=== PATIENT | female | born 1955 | race Two or more races ===

== ENCOUNTER 2023-12-03 15:39 | Inpatient (IN) | payer MEDICAID, OTHER ==
[~2023-12-03] VITALS: Ht 154.9 cm; Wt 75.8 kg
[2023-12-03 20:50] VITALS: PULSE 83; RESP 17; O2SAT 99
[2023-12-03 20:50] LABS: Basophils # (auto) 0 10 ^3/uL (0-0.2); Basophils % (auto) 0.5 % (0.0-2.0); Eosinophils # (auto) 0.3 10 ^3/uL (0-0.8); Lymphocytes # (auto) 0.9 10 ^3/uL (0.4-5.4)
[2023-12-03 20:51] LABS: Eosinophils % (auto) 3.1 % (0.0-7.0); Hematocrit 28.1 % (36.0-46.0); Hemoglobin 9.4 g/dL (12.2-16.2); Lymphocytes % (auto) 9.2 % (10.0-50.0); Mean Corpuscular Hemoglobin 27.3 pg (28.0-32.0); Mean Corpuscular Hgb Conc. 33.4 g/dL (32.0-36.0); Monocytes # (auto) 0.8 10 ^3/uL (0-1.3); Neutrophils # (auto) 7.2 10 ^3/uL (1.6-8.6); Neutrophils % (auto) 78.2 % (37.0-80.0); Platelet Count (auto) 522 10^3/uL (140-450); Red Blood Cells 3.43 10^6/uL (4.0-5.20); Red Cell Distribution Width 16.7 % (11.8-14.3); White Blood Cell 9.3 10^3/uL (4.4-10.8)
[2023-12-03 21:15] LABS: Albumin 3.2 g/dL (3.2-4.8); Alkaline Phosphatase 129 U/L (46-116); Anion Gap 8 (5-15); Aspartate Aminotransferase 26 U/L (13-40); BUN/Creatinine Ratio 27.1 (10.0-20.0); Blood Urea Nitrogen 36 mg/dL (9-23); Calcium 9.2 mg/dL (8.7-10.4); Carbon Dioxide 22 mmol/L (20-30); Chloride 101 mmol/L (98-107); Glucose 94 mg/dL (74-106); Potassium 3.7 mmol/L (3.5-5.1); Sodium 131 mmol/L (136-145)
[2023-12-03 21:16] LABS: Bilirubin, Total 0.3 mg/dL (0.2-1.0); Total Protein 7.1 g/dL (5.7-8.2)
[2023-12-03 21:18] LABS: Alanine Aminotransferase < 9 U/L (7-40)
[2023-12-03] MEDS ORDERED: VANCOMYCIN PER PHARMACY 0 MG IV SCH (21:30)
[2023-12-03] MEDS: NOREPINEPHRINE 8 MG/250ML KIT 250 ML IV SCH (21:30)
[2023-12-03] MEDS: SODIUM CHLORIDE 0.9% 1,000 ML IV ONE (21:49)
[2023-12-03 22:19] LABS: Triglycerides 167 mg/dL (< 150)
[2023-12-03 22:20] LABS: LDL Cholesterol 62 mg/dL (< 100)
[2023-12-03 22:21] LABS: Cholesterol 98 mg/dL (< 200); HDL Cholesterol 14 mg/dL (40-59); INR 1.18 (0.9-1.15); Partial Thromboplastin Time 34.5 SEC (24.5-34.5); Prothrombin Time 12.4 sec (9.3-11.8)
[2023-12-03 22:22] LABS: Urine Amorphous Crystal FEW /hpf (None Seen); Urine Bacteria MANY /hpf (None Seen); Urine Blood Negative /uL (Negative); Urine Clarity Ex.Turbid (Clear); Urine Color Light-Orange (Yellow); Urine Mucus FEW (None Seen); Urine Protein, UAD 4+ (Negative); Urine Specific Gravity 1.018 (1.001-1.035); Urine Urobilinogen Normal (Negative); Urine WBC 41 /hpf (0 - 5); Urine pH 8.5 (5.0-9.0)
[2023-12-03] MEDS: ATORVASTATIN 20 MG TAB PO SCH (22:23)
[2023-12-03] MEDS: ASPirin 81 mg TAB PO ONE (22:23)
[2023-12-03] MEDS: CEFEPIME 1GM/ 50ML 50 ML IV ONE (22:23)
[2023-12-03] MEDS: PANTOPRAZOLE 40 MG/10 ML VIAL INJ IV ONE (22:24)
[2023-12-03 22:31] LABS: Amphetamine Screen, Urine Neg (NEGATIVE); Barbiturate Scree,Urine Neg (NEGATIVE); Benzodiazephine Screen, Urine Neg (NEGATIVE); Cannabinoid Screen, Urine Neg (NEGATIVE); Cocaine Screen, Urine Neg (NEGATIVE); Opiate Scree,Urine Neg (NEGATIVE); Phencyclidine Screen, Urine Neg (NEGATIVE)
[2023-12-03] MEDS: VANCOMYCIN 1.5GM/300ML 300 ML IV ONE (22:53)
[2023-12-04] MEDS: SODIUM CHLORIDE 0.9% 1,000 ML IV ONE (01:15)
[2023-12-04] MEDS: SODIUM CHLORIDE 0.9% 1,000 ML IV SCH (02:15)
[2023-12-04] MEDS: IOHEXOL 300 MG/ML 100ML BOTTLE IJ ONE (03:07)
[2023-12-04] MEDS: NOREPINEPHRINE 8 MG/250ML KIT 250 ML IV SCH (05:23)
[2023-12-04 06:07] LABS: Basophils # (auto) 0 10 ^3/uL (0-0.2); Basophils % (auto) 0.5 % (0.0-2.0); Eosinophils # (auto) 0.3 10 ^3/uL (0-0.8); Eosinophils % (auto) 3.1 % (0.0-7.0); Hematocrit 27.4 % (36.0-46.0); Lymphocytes # (auto) 0.6 10 ^3/uL (0.4-5.4); Lymphocytes % (auto) 6.7 % (10.0-50.0); Mean Corpuscular Hemoglobin 27.2 pg (28.0-32.0); Mean Corpuscular Hgb Conc. 32.7 g/dL (32.0-36.0); Mean Corpuscular Volume 83.2 fL (80.0-100.0); Monocytes # (auto) 0.7 10 ^3/uL (0-1.3); Monocytes % (auto) 8.4 % (0.0-12.0); Neutrophils % (auto) 81.3 % (37.0-80.0); Nucleated Red Blood Cells % 0.1 %; Platelet Count (auto) 441 10^3/uL (140-450); White Blood Cell 8.6 10^3/uL (4.4-10.8)
[2023-12-04 06:34] LABS: Albumin 2.8 g/dL (3.2-4.8); Alkaline Phosphatase 109 U/L (46-116); Anion Gap 8 (5-15); Aspartate Aminotransferase 20 U/L (13-40); BUN/Creatinine Ratio 22.8 (10.0-20.0); Blood Urea Nitrogen 33 mg/dL (9-23); Calcium 8.5 mg/dL (8.7-10.4); Carbon Dioxide 18 mmol/L (20-30); Chloride 106 mmol/L (98-107); Glucose 90 mg/dL (74-106); Potassium 3.8 mmol/L (3.5-5.1); Sodium 132 mmol/L (136-145)
[2023-12-04 06:35] LABS: Bilirubin, Total 0.3 mg/dL (0.2-1.0); Total Protein 6.1 g/dL (5.7-8.2)
[2023-12-04 06:36] LABS: Alanine Aminotransferase < 9 U/L (7-40)
[2023-12-04 08:00] VITALS: PULSE 87; RESP 17; O2SAT 96
[2023-12-04] MEDS ORDERED: ASPirin 81 mg TAB PO SCH (10:00)
[2023-12-04] MEDS: CEFEPIME 1GM/ 50ML 50 ML IV SCH (13:48)
[2023-12-04] MEDS: PANTOPRAZOLE 40 MG/10 ML VIAL INJ IV SCH (13:48)
[2023-12-04 19:30] VITALS: PULSE 82; RESP 16; O2SAT 95
[2023-12-05] VITALS (24 sets, daily range): BP systolic 83–131; BP diastolic 52–72; PULSE 84–105; RESP 11–26; TEMP 97.6–97.9; O2SAT 81–100
[2023-12-05] MEDS: ONDANSETRON HCL 4 MG/2 ML VIAL IV ONE (09:04)
[2023-12-05] MEDS: MORPHINE SULFATE 4 MG/ML SYR/VIAL IV ONE (09:06)
[2023-12-05] MEDS ORDERED: MORPHINE SULFATE INJ 2 MG/ml SYRG IV PRN (09:15)
[2023-12-05 10:58] LABS: Basophils # (auto) 0.1 10 ^3/uL (0-0.2); Eosinophils # (auto) 0.4 10 ^3/uL (0-0.8); Hematocrit 25.4 % (36.0-46.0); Lymphocytes # (auto) 0.8 10 ^3/uL (0.4-5.4); Lymphocytes % (auto) 6.6 % (10.0-50.0); Monocytes # (auto) 0.9 10 ^3/uL (0-1.3)
[2023-12-05 11:00] LABS: Basophils % (auto) 0.5 % (0.0-2.0); Eosinophils % (auto) 3.4 % (0.0-7.0); Hemoglobin 8.1 g/dL (12.2-16.2); Mean Corpuscular Hemoglobin 26.6 pg (28.0-32.0); Monocytes % (auto) 7.7 % (0.0-12.0); Neutrophils # (auto) 9.9 10 ^3/uL (1.6-8.6); Neutrophils % (auto) 81.8 % (37.0-80.0); Platelet Count (auto) 500 10^3/uL (140-450); Red Blood Cells 3.06 10^6/uL (4.0-5.20); Red Cell Distribution Width 16.7 % (11.8-14.3); White Blood Cell 12.1 10^3/uL (4.4-10.8)
[2023-12-05 11:15] LABS: Albumin 2.5 g/dL (3.2-4.8); Alkaline Phosphatase 122 U/L (46-116); Anion Gap 9 (5-15); Aspartate Aminotransferase 21 U/L (13-40); BUN/Creatinine Ratio 21.3 (10.0-20.0); Bilirubin, Total 0.4 mg/dL (0.2-1.0); Blood Urea Nitrogen 29 mg/dL (9-23); Calcium 8.2 mg/dL (8.7-10.4); Carbon Dioxide 16 mmol/L (20-31); Chloride 111 mmol/L (98-107); Glucose 93 mg/dL (74-106); Sodium 136 mmol/L (136-145); Total Protein 5.6 g/dL (5.7-8.2)
[2023-12-05 11:16] LABS: Alanine Aminotransferase < 9 U/L (7-40)
[2023-12-05] MEDS: MORPHINE SULFATE 4 MG/ML SYR/VIAL IV PRN (13:26)
[2023-12-05] MEDS: guaiFENesin-DM 100/10mg/5ml SYR PO PRN (13:27)
[2023-12-05] MEDS: MIDAZOLAM HCL 2MG/2ML 2ml VIAL (1mg/ml) ONE (16:55)
[2023-12-05] MEDS: LIDOCAINE 2%HCL (LOCAL ANESTH.) INJ 20ML MDV ONE (17:00)
[2023-12-05] MEDS: NOREPINEPHRINE 8 MG/250ML KIT 250 ML IV ONE (18:15)
[2023-12-06] VITALS (96 sets, daily range): BP systolic 72–114; BP diastolic 46–87; PULSE 78–124; RESP 11–29; TEMP 96.9–98.9; O2SAT 86–100
[2023-12-06] MEDS: LIDOCAINE 1% (LOCAL ANESTH.) PF 5ml SDV ID ONE (12:45)
[2023-12-06] MEDS: ONDANSETRON HCL 4 MG/2 ML VIAL IV PRN (13:45)
[2023-12-06 14:43] LABS: Basophils # (auto) 0.1 10 ^3/uL (0-0.2); Basophils % (auto) 0.6 % (0.0-2.0); Eosinophils # (auto) 0.6 10 ^3/uL (0-0.8); Eosinophils % (auto) 3.7 % (0.0-7.0); Hematocrit 24.4 % (36.0-46.0); Hemoglobin 7.7 g/dL (12.2-16.2); Lymphocytes # (auto) 0.8 10 ^3/uL (0.4-5.4); Mean Corpuscular Hemoglobin 26.5 pg (28.0-32.0); Mean Corpuscular Hgb Conc. 31.6 g/dL (32.0-36.0); Mean Corpuscular Volume 83.9 fL (80.0-100.0); Monocytes % (auto) 6.4 % (0.0-12.0); Neutrophils # (auto) 13.7 10 ^3/uL (1.6-8.6); Neutrophils % (auto) 84.3 % (37.0-80.0); Nucleated Red Blood Cells % 0.1 %; Platelet Count (auto) 484 10^3/uL (140-450); Red Blood Cells 2.91 10^6/uL (4.0-5.20); White Blood Cell 16.2 10^3/uL (4.4-10.8)
[2023-12-06 14:53] LABS: Anion Gap 10 (5-15); Calcium 7.3 mg/dL (8.7-10.4); Carbon Dioxide 13 mmol/L (20-31); Chloride 115 mmol/L (98-107); Potassium 3.6 mmol/L (3.5-5.1); Sodium 138 mmol/L (136-145)
[2023-12-06 14:58] LABS: Glucose 134 mg/dL (74-106)
[2023-12-06 14:59] LABS: BUN/Creatinine Ratio 20.5 (10.0-20.0); Blood Urea Nitrogen 24 mg/dL (9-23)
[2023-12-06] MEDS ORDERED: VANCOMYCIN PER PHARMACY 0 MG IV SCH (17:15)
[2023-12-06 20:30] LABS: Urine Amorphous Crystal FEW /hpf (None Seen); Urine Bacteria FEW /hpf (None Seen); Urine Blood 2+ /uL (Negative); Urine Clarity Turbid (Clear); Urine Color Yellow (Yellow); Urine Mucus FEW (None Seen); Urine Protein, UAD 1+ (Negative); Urine Specific Gravity 1.019 (1.001-1.035); Urine Urobilinogen Normal (Negative); Urine WBC 145 /hpf (0 - 5); Urine WBC Clumps PRESENT /hpf (None Seen); Urine pH 5.5 (5.0-9.0)
[2023-12-06] MEDS: VANCOMYCIN 1.25GM/250ML 250 ML IV ONE (21:44)
[2023-12-06] MEDS: SODIUM CHLOR 0.9% PF (SALINE LOCK) 10ML VIAL/SYR IV SCH (22:00)
[2023-12-06] MEDS ORDERED: CEFEPIME 1GM/ 50ML 50 ML IV SCH (23:00)
[2023-12-06] MEDS ORDERED: MEROPENEM 1 GM VIAL IV ONE (23:15)
[2023-12-06] MEDS: MEROPENEM 1GM IVPB 50 ML IV ONE (23:45)
[2023-12-07] VITALS (95 sets, daily range): BP systolic 82–115; BP diastolic 48–79; PULSE 90–131; RESP 14–27; TEMP 96.6–98.7; O2SAT 91–100
[2023-12-07 06:01] LABS: Basophils # (auto) 0.1 10 ^3/uL (0-0.2); Eosinophils # (auto) 0.5 10 ^3/uL (0-0.8); Hemoglobin 8.1 g/dL (12.2-16.2); Monocytes # (auto) 1.1 10 ^3/uL (0-1.3); Red Cell Distribution Width 17.3 % (11.8-14.3)
[2023-12-07 06:04] LABS: Basophils % (auto) 0.3 % (0.0-2.0); Eosinophils % (auto) 3.5 % (0.0-7.0); Hematocrit 24.8 % (36.0-46.0); Lymphocytes # (auto) 0.7 10 ^3/uL (0.4-5.4); Lymphocytes % (auto) 4.4 % (10.0-50.0); Mean Corpuscular Hemoglobin 27.1 pg (28.0-32.0); Mean Corpuscular Hgb Conc. 32.5 g/dL (32.0-36.0); Mean Corpuscular Volume 83.5 fL (80.0-100.0); Monocytes % (auto) 7.6 % (0.0-12.0); Neutrophils # (auto) 12.7 10 ^3/uL (1.6-8.6); Neutrophils % (auto) 84.2 % (37.0-80.0); Platelet Count (auto) 415 10^3/uL (140-450); Red Blood Cells 2.97 10^6/uL (4.0-5.20)
[2023-12-07 06:25] LABS: Anion Gap 12 (5-15); Carbon Dioxide 12 mmol/L (20-31); Chloride 114 mmol/L (98-107); Sodium 138 mmol/L (136-145)
[2023-12-07 06:26] LABS: Calcium 7.7 mg/dL (8.7-10.4)
[2023-12-07 06:30] LABS: Glucose 83 mg/dL (74-106)
[2023-12-07 06:31] LABS: BUN/Creatinine Ratio 19.9 (10.0-20.0); Blood Urea Nitrogen 27 mg/dL (9-23)
[2023-12-07 16:42] LABS: Chloride 114 mmol/L (98-107); Potassium 3.7 mmol/L (3.5-5.1); Sodium 135 mmol/L (136-145)
[2023-12-07] MEDS: MEROPENEM 1GM IVPB 50 ML IV ONE (16:42)
[2023-12-07] MEDS: FUROSEMIDE 40 MG/4 ML VIAL IV ONE (16:42)
[2023-12-07 16:44] LABS: Anion Gap 7 (5-15); Calcium 8.1 mg/dL (8.7-10.4); Carbon Dioxide 14 mmol/L (20-31)
[2023-12-07 16:49] LABS: BUN/Creatinine Ratio 13.3 (10.0-20.0); Blood Urea Nitrogen 19 mg/dL (9-23); Glucose 86 mg/dL (74-106)
[2023-12-07] MEDS: MEROPENEM 1GM IVPB 50 ML IV SCH (21:33)
[2023-12-07] MEDS ORDERED: MEROPENEM 1GM IVPB 50 ML IV SCH (22:00)
[2023-12-08] VITALS (97 sets, daily range): BP systolic 74–120; BP diastolic 47–75; PULSE 109–135; RESP 14–26; TEMP 97.6–98.6; O2SAT 93–100
[2023-12-08] MEDS: MORPHINE SULFATE 4 MG/ML SYR/VIAL IV PRN (00:39)
[2023-12-08 06:02] LABS: Basophils % (auto) 0.9 % (0.0-2.0); Lymphocytes # (auto) 0.7 10 ^3/uL (0.4-5.4); Neutrophils # (auto) 13.7 10 ^3/uL (1.6-8.6); Neutrophils % (auto) 84.2 % (37.0-80.0); White Blood Cell 16.3 10^3/uL (4.4-10.8)
[2023-12-08 06:03] LABS: Basophils # (auto) 0.1 10 ^3/uL (0-0.2); Eosinophils # (auto) 0.5 10 ^3/uL (0-0.8); Eosinophils % (auto) 3.1 % (0.0-7.0); Hematocrit 26.2 % (36.0-46.0); Hemoglobin 8.6 g/dL (12.2-16.2); Lymphocytes % (auto) 4.3 % (10.0-50.0); Mean Corpuscular Hemoglobin 27.5 pg (28.0-32.0); Mean Corpuscular Hgb Conc. 32.8 g/dL (32.0-36.0); Mean Corpuscular Volume 83.8 fL (80.0-100.0); Monocytes # (auto) 1.2 10 ^3/uL (0-1.3); Monocytes % (auto) 7.5 % (0.0-12.0); Platelet Count (auto) 428 10^3/uL (140-450); Red Blood Cells 3.13 10^6/uL (4.0-5.20); Red Cell Distribution Width 17.9 % (11.8-14.3)
[2023-12-08 06:07] LABS: Chloride 113 mmol/L (98-107); Potassium 3.5 mmol/L (3.5-5.1); Sodium 138 mmol/L (136-145)
[2023-12-08 06:08] LABS: Anion Gap 13 (5-15); Calcium 8.2 mg/dL (8.7-10.4); Carbon Dioxide 12 mmol/L (20-31)
[2023-12-08 06:13] LABS: BUN/Creatinine Ratio 15.9 (10.0-20.0); Blood Urea Nitrogen 24 mg/dL (9-23); Glucose 87 mg/dL (74-106)
[2023-12-08] MEDS ORDERED: HYDR-4902 PO (13:26)
[2023-12-08] MEDS ORDERED: AUG875T PO (13:26)
[2023-12-09] VITALS (97 sets, daily range): BP systolic 85–115; BP diastolic 53–76; PULSE 92–133; RESP 14–24; TEMP 97–98.7; O2SAT 88–100
[2023-12-09 00:35] LABS: Base Excess -13.8 mmol/L (-2.0-3.0)
[2023-12-09] MEDS: SODIUM CHLORIDE 0.9% 500 ML IV ONE (00:40)
[2023-12-09] MEDS: ALBUMIN 5% 250 ML IV ONE (03:07)
[2023-12-09 03:51] LABS: Hematocrit 33.6 % (36.0-46.0); Hemoglobin 9.8 g/dL (12.2-16.2)
[2023-12-09 05:16] LABS: Basophils # (auto) 0.1 10 ^3/uL (0-0.2); Hemoglobin 8.8 g/dL (12.2-16.2); Lymphocytes # (auto) 0.8 10 ^3/uL (0.4-5.4)
[2023-12-09 05:19] LABS: Basophils % (auto) 0.5 % (0.0-2.0); Eosinophils # (auto) 0.5 10 ^3/uL (0-0.8); Eosinophils % (auto) 2.1 % (0.0-7.0); Hematocrit 27.8 % (36.0-46.0); Lymphocytes % (auto) 3.7 % (10.0-50.0); Mean Corpuscular Hemoglobin 26.5 pg (28.0-32.0); Mean Corpuscular Hgb Conc. 31.6 g/dL (32.0-36.0); Monocytes # (auto) 1.4 10 ^3/uL (0-1.3); Monocytes % (auto) 6.7 % (0.0-12.0); Neutrophils # (auto) 18.3 10 ^3/uL (1.6-8.6); Platelet Count (auto) 397 10^3/uL (140-450); Red Blood Cells 3.31 10^6/uL (4.0-5.20)
[2023-12-09] MEDS ORDERED: MAGNESIUM SULFATE 1GM/100ML 100 ML IV SCH (16:00)
[2023-12-09] MEDS: VANCOMYCIN 1GM/250ML 200 ML IV ONE (21:37)
[2023-12-10] VITALS (96 sets, daily range): BP systolic 71–118; BP diastolic 19–70; PULSE 109–131; RESP 20–35; TEMP 97.6–98.9; O2SAT 88–99
[2023-12-10 05:30] LABS: Mean Corpuscular Hgb Conc. 31.4 g/dL (32.0-36.0); Monocytes # (auto) 1.3 10 ^3/uL (0-1.3)
[2023-12-10 05:33] LABS: Basophils # (auto) 0.2 10 ^3/uL (0-0.2); Basophils % (auto) 0.7 % (0.0-2.0); Eosinophils # (auto) 0.7 10 ^3/uL (0-0.8); Eosinophils % (auto) 3.1 % (0.0-7.0); Hematocrit 27.6 % (36.0-46.0); Hemoglobin 8.7 g/dL (12.2-16.2); Lymphocytes # (auto) 0.8 10 ^3/uL (0.4-5.4); Lymphocytes % (auto) 3.6 % (10.0-50.0); Mean Corpuscular Hemoglobin 26.8 pg (28.0-32.0); Mean Corpuscular Volume 85.4 fL (80.0-100.0); Monocytes % (auto) 6.1 % (0.0-12.0); Neutrophils # (auto) 18.9 10 ^3/uL (1.6-8.6); Neutrophils % (auto) 86.5 % (37.0-80.0); Platelet Count (auto) 340 10^3/uL (140-450); Red Blood Cells 3.23 10^6/uL (4.0-5.20); Red Cell Distribution Width 18.3 % (11.8-14.3); White Blood Cell 21.9 10^3/uL (4.4-10.8)
[2023-12-10 05:37] LABS: Alanine Aminotransferase 15 U/L (7-40); Albumin 2.2 g/dL (3.2-4.8); Alkaline Phosphatase 246 U/L (46-116); Anion Gap 14 (5-15); Aspartate Aminotransferase 88 U/L (13-40); BUN/Creatinine Ratio 11.8 (10.0-20.0); Blood Urea Nitrogen 26 mg/dL (9-23); Calcium 8.8 mg/dL (8.7-10.4); Carbon Dioxide 11 mmol/L (20-31); Chloride 118 mmol/L (98-107); Glucose 75 mg/dL (74-106); Potassium 3.6 mmol/L (3.5-5.1); Sodium 143 mmol/L (136-145)
[2023-12-10 05:38] LABS: Bilirubin, Total 0.5 mg/dL (0.2-1.0); Total Protein 5.3 g/dL (5.7-8.2)
[2023-12-10] MEDS ORDERED: CLINIMIX PER PHARMACY 0 ML IV SCH (14:00)
[2023-12-10] MEDS ORDERED: TPN PER PHARMACY 0 ML IV SCH (14:45)
[2023-12-10] MEDS: VASOPRESSIN 20 UNITS in SODIUM CHL 0.9% 99 ML IV SCH (14:45)
[2023-12-10] MEDS: SODIUM CHLORIDE 0.9% 1,000 ML IV SCH (15:00)
[2023-12-10] MEDS: AMINO ACID INFUSION IN D10W 1,000 ML IV SCH (20:47)
[2023-12-10] MEDS: MEROPENEM 500MG IVPB 50 ML IV SCH (21:36)
[2023-12-10 23:53] LABS: Base Excess -15.5 mmol/L (-2.0-3.0)
[2023-12-11] VITALS (111 sets, daily range): BP systolic 81–118; BP diastolic 50–78; PULSE 96–130; RESP 17–33; TEMP 95.9–99.4; O2SAT 91–99
[2023-12-11] MEDS: SODIUM BICARB 8.4% 50Meq/50ml SYR Vial IV ONE ×2 (00:13→07:07)
[2023-12-11 05:06] LABS: Basophils # (auto) 0.1 10 ^3/uL (0-0.2); Basophils % (auto) 0.5 % (0.0-2.0); Eosinophils # (auto) 0.8 10 ^3/uL (0-0.8); Eosinophils % (auto) 3.5 % (0.0-7.0); Hemoglobin 7.1 g/dL (12.2-16.2); Lymphocytes # (auto) 1.1 10 ^3/uL (0.4-5.4); Lymphocytes % (auto) 4.4 % (10.0-50.0); Mean Corpuscular Hemoglobin 26.9 pg (28.0-32.0); Mean Corpuscular Hgb Conc. 32.1 g/dL (32.0-36.0); Mean Corpuscular Volume 83.7 fL (80.0-100.0); Monocytes # (auto) 1.4 10 ^3/uL (0-1.3); Monocytes % (auto) 5.9 % (0.0-12.0); Neutrophils # (auto) 20.6 10 ^3/uL (1.6-8.6); Neutrophils % (auto) 85.7 % (37.0-80.0); Platelet Count (auto) 304 10^3/uL (140-450); Red Blood Cells 2.62 10^6/uL (4.0-5.20); Red Cell Distribution Width 18.3 % (11.8-14.3); White Blood Cell 24.1 10^3/uL (4.4-10.8)
[2023-12-11 05:26] LABS: Alanine Aminotransferase 15 U/L (7-40); Alkaline Phosphatase 233 U/L (46-116); Anion Gap 12 (5-15); Aspartate Aminotransferase 85 U/L (13-40); BUN/Creatinine Ratio 11.5 (10.0-20.0); Bilirubin, Total 0.6 mg/dL (0.2-1.0); Blood Urea Nitrogen 30 mg/dL (9-23); Calcium 8.5 mg/dL (8.7-10.4); Carbon Dioxide 14 mmol/L (20-31); Chloride 120 mmol/L (98-107); Glucose 146 mg/dL (74-106); Magnesium 1.4 mg/dL (1.6-2.6); Phosphorus 4.4 mg/dL (2.4-5.1); Potassium 3.3 mmol/L (3.5-5.1); Sodium 146 mmol/L (136-145)
[2023-12-11 05:57] LABS: Base Excess -15.1 mmol/L (-2.0-3.0)
[2023-12-11] MEDS: MAGNESIUM SULFATE 1GM/100ML 100 ML IV ONE (07:06)
[2023-12-11] MEDS: POTASSIUM CHL 20MEQ/100ML 100 ML IV ONE (07:07)
[2023-12-11 09:33] LABS: Base Excess -12.2 mmol/L (-2.0-3.0)
[2023-12-11] MEDS ORDERED: DEXTROSE (50%) 50ML SYRG IV SCH (12:00)
[2023-12-11] MEDS: ACCU-CHEK COMFORT CURVE STRIP VI SCH (12:09)
[2023-12-11] MEDS: InsuLIN REG 1unit/0.01ml Soln (100units/ml) SC SCH (12:18)
[2023-12-11] MEDS: SODIUM BICARB 50mEq/50ml Vial 150 ML in D5W 5% 1,000 ML IV SCH (14:08)
[2023-12-11 17:29] LABS: Urine Bacteria FEW /hpf (None Seen); Urine Blood 3+ /uL (Negative); Urine Clarity Turbid (Clear); Urine Color Orange (Yellow); Urine Protein, UAD 3+ (Negative); Urine Specific Gravity 1.021 (1.001-1.035); Urine Urobilinogen 12 mg/dL (Negative); Urine WBC 102 /hpf (0 - 5)
[2023-12-11] MEDS: FUROSEMIDE 100 MG/10ML VIAL IV ONE (17:37)
[2023-12-11 18:29] LABS: Ferritin 643.5 ng/mL (10-291)
[2023-12-11 18:30] LABS: Folate (Folic Acid) 8.95 ng/mL (>5.38)
[2023-12-11 18:38] LABS: Hematocrit 24.5 % (36.0-46.0); Hemoglobin 7.5 g/dL (12.2-16.2)
[2023-12-11 18:45] LABS: % Iron Saturation 13.7 % (15-50)
[2023-12-11] MEDS: TPN PER PHARMACY IV NR (19:39)
[2023-12-12] VITALS (98 sets, daily range): BP systolic 83–124; BP diastolic 50–77; PULSE 81–119; RESP 11–26; TEMP 96.4–98.9; O2SAT 93–100
[2023-12-12 05:17] LABS: Basophils # (auto) 0.1 10 ^3/uL (0-0.2); Basophils % (auto) 0.4 % (0.0-2.0); Eosinophils % (auto) 4.1 % (0.0-7.0); Hematocrit 28.1 % (36.0-46.0); Hemoglobin 9.1 g/dL (12.2-16.2); Lymphocytes # (auto) 0.8 10 ^3/uL (0.4-5.4); Lymphocytes % (auto) 3.6 % (10.0-50.0); Mean Corpuscular Hemoglobin 27.5 pg (28.0-32.0); Mean Corpuscular Hgb Conc. 32.6 g/dL (32.0-36.0); Mean Corpuscular Volume 84.5 fL (80.0-100.0); Monocytes # (auto) 1.7 10 ^3/uL (0-1.3); Neutrophils # (auto) 20.2 10 ^3/uL (1.6-8.6); Neutrophils % (auto) 84.9 % (37.0-80.0); Nucleated Red Blood Cells % 0.1 %; Platelet Count (auto) 227 10^3/uL (140-450); Red Blood Cells 3.32 10^6/uL (4.0-5.20); Red Cell Distribution Width 16.8 % (11.8-14.3); White Blood Cell 23.8 10^3/uL (4.4-10.8)
[2023-12-12 05:31] LABS: Alanine Aminotransferase 11 U/L (7-40); Albumin 1.8 g/dL (3.2-4.8); Alkaline Phosphatase 230 U/L (46-116); Anion Gap 10 (5-15); Aspartate Aminotransferase 57 U/L (13-40); BUN/Creatinine Ratio 13.6 (10.0-20.0); Blood Urea Nitrogen 33 mg/dL (9-23); Calcium 7.8 mg/dL (8.7-10.4); Carbon Dioxide 18 mmol/L (20-31); Chloride 119 mmol/L (98-107); Glucose 153 mg/dL (74-106); Magnesium 1.6 mg/dL (1.6-2.6); Phosphorus 3.3 mg/dL (2.4-5.1); Potassium 3.1 mmol/L (3.5-5.1); Sodium 147 mmol/L (136-145); Triglycerides 91 mg/dL (< 150)
[2023-12-12 05:32] LABS: Bilirubin, Total 1.1 mg/dL (0.2-1.0); Total Protein 4.7 g/dL (5.7-8.2)
[2023-12-12] MEDS: FUROSEMIDE 100 MG/10ML VIAL IV SCH (09:19)
[2023-12-12] MEDS: SODIUM BICARB 50mEq/50ml Vial 50 ML in SOD CHL 0.45% 1,000 ML IV SCH (09:29)
[2023-12-12] MEDS: POTASSIUM CHL 20MEQ/100ML 100 ML IV ONE (12:48)
[2023-12-12] MEDS: MORPHINE SULFATE INJ 2 MG/ml SYRG IV ONE (14:00)
[2023-12-12] MEDS: MORPHINE SULFATE INJ 2 MG/ml SYRG IV PRN (14:41)
[2023-12-12] MEDS: FUROSEMIDE 100 MG/10ML VIAL IV ONE (17:06)
[2023-12-12] MEDS: TPN PER PHARMACY IV NR (20:25)
[2023-12-12] MEDS: NOREPINEPHRINE BITARTRATE 32 MG in SODIUM CHL 0.9% 218 ML IV SCH (22:20)
[2023-12-13] VITALS (99 sets, daily range): BP systolic 66–113; BP diastolic 39–90; PULSE 87–118; RESP 9–20; TEMP 97.5–98.3; O2SAT 85–100
[2023-12-13] MEDS: PHENYLEPHRINE IV 250 ML IV SCH (04:30)
[2023-12-13] MEDS: PHENYLEPHRINE IV 250 ML IV ONE (04:34)
[2023-12-13 06:19] LABS: Alkaline Phosphatase 239 U/L (46-116); Anion Gap 7 (5-15); Aspartate Aminotransferase 48 U/L (13-40); Blood Urea Nitrogen 32 mg/dL (9-23); Calcium 8.4 mg/dL (8.7-10.4); Carbon Dioxide 21 mmol/L (20-31); Chloride 115 mmol/L (98-107); Glucose 139 mg/dL (74-106); Magnesium 1.8 mg/dL (1.6-2.6); Potassium 3.8 mmol/L (3.5-5.1); Sodium 143 mmol/L (136-145)
[2023-12-13 06:20] LABS: Phosphorus 3.3 mg/dL (2.4-5.1); Total Protein 5.2 g/dL (5.7-8.2)
[2023-12-13 06:25] LABS: Hematocrit 30.8 % (36.0-46.0); Mean Corpuscular Hemoglobin 27.8 pg (28.0-32.0); Mean Corpuscular Hgb Conc. 32.4 g/dL (32.0-36.0); Mean Corpuscular Volume 85.9 fL (80.0-100.0); Platelet Count (auto) 171 10^3/uL (140-450); Red Blood Cells 3.58 10^6/uL (4.0-5.20); Red Cell Distribution Width 17.7 % (11.8-14.3)
[2023-12-13 06:26] LABS: Alanine Aminotransferase < 9 U/L (7-40)
[2023-12-13 06:39] LABS: White Blood Cell 30.8 10^3/uL (4.4-10.8)
[2023-12-13 06:40] LABS: Band Neutrophils % (manual) 0; Basophils % (manual) 0 (0.0-2.0); Blast Cells 0; Metamyelocytes % 0; Myelocytes % 0; Promyelocytes % 0; Reactive Lymphocytes 0
[2023-12-13 06:52] LABS: Eosinophils % (manual) 8 (0-7); Lymphocytes % (manual) 3 (10.0-50.0); Monocytes % (manual) 9 (0-12); Platelet Estimate Adequate
[2023-12-13] MEDS: TPN PER PHARMACY IV NR (20:16)
[2023-12-14] VITALS (29 sets, daily range): BP systolic 0–78; BP diastolic 0–56; PULSE 0–105; RESP 0–13; TEMP 97.5–98.5; O2SAT 80–100
[2023-12-14 05:10] LABS: Basophils # (auto) 0.1 10 ^3/uL (0-0.2); Eosinophils # (auto) 0.8 10 ^3/uL (0-0.8); Hemoglobin 8.7 g/dL (12.2-16.2); Lymphocytes # (auto) 1.3 10 ^3/uL (0.4-5.4); Monocytes # (auto) 2.2 10 ^3/uL (0-1.3); Platelet Count (auto) 110 10^3/uL (140-450)
[2023-12-14 05:13] LABS: Basophils % (auto) 0.4 % (0.0-2.0); Lymphocytes % (auto) 6.6 % (10.0-50.0); Mean Corpuscular Hemoglobin 27.5 pg (28.0-32.0); Mean Corpuscular Hgb Conc. 30.9 g/dL (32.0-36.0); Mean Corpuscular Volume 88.9 fL (80.0-100.0); Neutrophils # (auto) 15.8 10 ^3/uL (1.6-8.6); Nucleated Red Blood Cells % 1.6 %; Red Blood Cells 3.15 10^6/uL (4.0-5.20); Red Cell Distribution Width 18.4 % (11.8-14.3); White Blood Cell 20.3 10^3/uL (4.4-10.8)
[2023-12-14 05:22] LABS: Albumin 1.7 g/dL (3.2-4.8); Alkaline Phosphatase 265 U/L (46-116); Anion Gap 3 (5-15); Aspartate Aminotransferase 57 U/L (13-40); BUN/Creatinine Ratio 12.9 (10.0-20.0); Bilirubin, Total 0.8 mg/dL (0.2-1.0); Blood Urea Nitrogen 39 mg/dL (9-23); Carbon Dioxide 22 mmol/L (20-31); Chloride 116 mmol/L (98-107); Glucose 145 mg/dL (74-106); Phosphorus 4.3 mg/dL (2.4-5.1); Potassium 4.5 mmol/L (3.5-5.1); Sodium 141 mmol/L (136-145); Total Protein 4.5 g/dL (5.7-8.2)
[2023-12-14 05:26] LABS: Alanine Aminotransferase < 9 U/L (7-40)
== END 2023-12-14 11:09 | DRG 720 ==
LOC: EDBD 15:39 → ER 15:39 → TELE 21:31 → ICU CENTRL 12-05 18:37
PROVIDERS: ADMIT Internal Medicine; ATTEND Internal Medicine
PROC: 0T25X0Z Change Drainage Device in Kidney, External Approach (ICD-10-PCS; 2023-12-05)
PROC: BT131ZZ Fluoroscopy of Bilateral Kidneys using Low Osmolar Contrast (ICD-10-PCS; 2023-12-05)
PROC: 02HV33Z Insertion of Infusion Device into Superior Vena Cava, Percutaneous Approach (ICD-10-PCS; 2023-12-06)
PROC: B548ZZA Ultrasonography of Superior Vena Cava, Guidance (ICD-10-PCS; 2023-12-06)
PROC: 30233N1 Transfusion of Nonautologous Red Blood Cells into Peripheral Vein, Percutaneous Approach (ICD-10-PCS; principal; 2023-12-11)
DX: A41.9 Sepsis, unspecified organism (principal); J96.01 Acute respiratory failure with hypoxia; N17.0 Acute kidney failure with tubular necrosis; J69.0 Pneumonitis due to inhalation of food and vomit; R65.21 Severe sepsis with septic shock; D68.69 Other thrombophilia; J18.9 Pneumonia, unspecified organism; K92.2 Gastrointestinal hemorrhage, unspecified; N99.522 Malfunction of incontinent external stoma of urinary tract; T83.022A Displacement of nephrostomy catheter, initial encounter; D69.6 Thrombocytopenia, unspecified; D50.9 Iron deficiency anemia, unspecified; E55.9 Vitamin D deficiency, unspecified; C53.9 Malignant neoplasm of cervix uteri, unspecified; D75.839 Thrombocytosis, unspecified; I10 Essential (primary) hypertension; K59.00 Constipation, unspecified; N12 Tubulo-interstitial nephritis, not specified as acute or chronic; N30.01 Acute cystitis with hematuria; Y83.8 Other surgical procedures as the cause of abnormal reaction of the patient, or of later complication, without mention of misadventure at the time of the procedure; Y82.8 Other medical devices associated with adverse incidents; Y73.2 Prosthetic and other implants, materials and accessory gastroenterology and urology devices associated with adverse incidents; Z88.8 Allergy status to other drugs, medicaments and biological substances; Z79.899 Other long term (current) drug therapy; Z82.5 Family history of asthma and other chronic lower respiratory diseases; Z80.49 Family history of malignant neoplasm of other genital organs; Z86.711 Personal history of pulmonary embolism; Z85.41 Personal history of malignant neoplasm of cervix uteri; Z51.5 Encounter for palliative care; Z86.73 Personal history of transient ischemic attack (TIA), and cerebral infarction without residual deficits; Z92.21 Personal history of antineoplastic chemotherapy; Y92.89 Other specified places as the place of occurrence of the external cause
CPT/HCPCS: 36415; 36569; 36600; 50435; 71045; 71250; 71260; 74177; 74425; 76775; 80048; 80053; 80061; 80202; 80307; 81001; 82270; 82306; 82607; 82728; 82746; 82805; 82962; 83036; 83540; 83550; 83605; 83615; 83735; 83880; 84100; 84132; 84443; 84478; 84484; 85007; 85014; 85018; 85025; 85027; 85045; 85610; 85730; 86850; 86900; 86901; 86920; 87040; 87070; 87077; 87081; 87086; 87088; 87186; 87205; 92610; 93005; 93306; 96379; 99152; G0378; J1815; J2185; J2250; J2405; J2470; J3480